=== PATIENT | male | born 1970 | race Two or more races ===

== ENCOUNTER 2025-05-03 19:06 | Inpatient (IN) | payer MEDICARE, OTHER ==
[~2025-05-03] VITALS: Ht 165.1 cm; Wt 106.1 kg
[2025-05-03 19:50] LABS: PLATELET COUNT (AUTO) 379 K/uL (152-348); RED BLOOD CELL COUNT(AUTO) 4.00 MIL/uL (4.06-5.63); RED CELL DISTRIBUTION WIDTH 14.2 % (12.1-16.2); WHITE BLOOD COUNT (AUTO) 9.5 K/uL (3.6-10.2)
[2025-05-03 19:57] LABS: CREATININE 1.0 mg/dL (0.6-1.3); SODIUM SERUM 134.0 mmol/L (136-145); UREA NITROGEN, BLOOD 14.0 mg/dL (7-18)
[2025-05-03 20:03] LABS: ASPARTATE AMINOTRANSFERASE 63.0 U/L (15-37); TOTAL PROTEIN, SERUM 8.3 g/dL (6.4-8.2)
[2025-05-03] MEDS ORDERED: LORAZEPAM 1 MG TABLET ONE (22:55)
[2025-05-03] MEDS: LORAZEPAM 0.5 MG TABLET PO ONE (22:57)
[2025-05-04 01:00] VITALS: BP 146/89; TEMP 97.7; O2SAT 98
[2025-05-04] MEDS ORDERED: MAGNESIUM HYDROXIDE 30 ML LIQUID UDC PO PRN (01:00)
[2025-05-04] MEDS ORDERED: MAG HYDROX/AL HYDROX/SIMETH 30 ML LIQUID UDC PO PRN (01:00)
[2025-05-04] MEDS ORDERED: LORAZEPAM 1 MG TABLET PO PRN (01:00)
[2025-05-04] MEDS ORDERED: LEVO75TA PO (01:57)
[2025-05-04] MEDS ORDERED: METO-358 PO (01:57)
[2025-05-04] MEDS ORDERED: DIVA500T2 PO (01:57)
[2025-05-04] MEDS ORDERED: RISP3TAB5 PO (01:57)
[2025-05-04] MEDS: TEMAZEPAM 7.5 MG CAPSULE PO PRN (02:09)
[2025-05-04 08:16] VITALS: BP 101/57; TEMP 97.7; O2SAT 98
[2025-05-04] MEDS: NICOTINE 21 MG/24HR PATCH TD SCH (08:38)
[2025-05-04] MEDS: REMEDY ESSENTIAL ZINC PASTE 113 GM TOP SCH (08:39)
[2025-05-04] MEDS ORDERED: risperiDONE 1 MG/ML UDC PO SCH (13:45)
[2025-05-04] MEDS: DIVALPROEX 500 MG TABLET.DR PO SCH (14:27)
[2025-05-04] MEDS: METOPROLOL SUCCINATE XL 50 MG TAB.SR.24H PO SCH (15:46)
[2025-05-04] MEDS ORDERED: DIVA500T4 PO (15:59)
[2025-05-04] MEDS ORDERED: TRIA60LO16 TP (16:01)
[2025-05-04] MEDS ORDERED: ACET325T53 PO (16:02)
[2025-05-04] MEDS ORDERED: NICO2GUM38 BC (16:03)
[2025-05-04 16:55] VITALS: BP 107/59; TEMP 97.7; O2SAT 98
[2025-05-04 20:02] VITALS: BP 104/62; TEMP 98.1; O2SAT 96
[2025-05-04] MEDS: LORAZEPAM 1 MG TABLET PO PRN (20:11)
[2025-05-05] MEDS: LEVOTHYROXINE SODIUM 75 MCG TABLET PO SCH (06:26)
[2025-05-05 07:48] LABS: ASPARTATE AMINOTRANSFERASE 48.0 U/L (15-37); CREATININE 1.0 mg/dL (0.6-1.3); SODIUM SERUM 135.0 mmol/L (136-145); TOTAL PROTEIN, SERUM 7.6 g/dL (6.4-8.2); UREA NITROGEN, BLOOD 13.0 mg/dL (7-18)
[2025-05-05 08:14] VITALS: BP 112/68; TEMP 98.1; O2SAT 96
[2025-05-05 16:11] VITALS: BP 101/61; TEMP 98.1; O2SAT 96
[2025-05-05 20:00] VITALS: BP 132/82; TEMP 97.9; O2SAT 100
[2025-05-05] MEDS: ACETAMINOPHEN 325 MG TABLET PO PRN (20:51)
[2025-05-06 08:39] VITALS: BP 122/71; TEMP 98.7; O2SAT 100
[2025-05-06 15:50] VITALS: BP 116/68; TEMP 97.5; O2SAT 100
[2025-05-06 19:57] VITALS: BP 118/79; TEMP 97.8; O2SAT 99
[2025-05-07] MEDS: TEMAZEPAM 7.5 MG CAPSULE PO PRN (01:29)
[2025-05-07 08:10] VITALS: BP 138/94; TEMP 98; O2SAT 98
[2025-05-07 15:23] VITALS: BP 127/83; TEMP 98; O2SAT 99
[2025-05-07] MEDS: HYDROCODONE/APAP 5-325MG TABLET PO PRN (17:20)
[2025-05-07 19:50] VITALS: BP 115/81; TEMP 97.8; O2SAT 97
[2025-05-07 20:00] VITALS: BP 115/81; TEMP 97.8; O2SAT 97
[2025-05-08 07:54] VITALS: BP 131/83; TEMP 98; O2SAT 98
[2025-05-08 15:30] VITALS: BP 129/81; TEMP 98; O2SAT 98
[2025-05-08 20:01] VITALS: BP 130/78; TEMP 98.1; O2SAT 98
[2025-05-09] MEDS: OLANZAPINE 5 MG TABLET PO SCH (00:26)
[2025-05-09 08:06] VITALS: BP 118/87; TEMP 98; O2SAT 100
[2025-05-09 15:34] VITALS: BP 126/66; TEMP 98; O2SAT 98
[2025-05-09 20:18] VITALS: BP 125/69; TEMP 98.1; O2SAT 99
[2025-05-10 08:10] VITALS: BP 127/77; TEMP 98.5; O2SAT 100
[2025-05-10 16:30] VITALS: BP 130/69; TEMP 98.5; O2SAT 100
[2025-05-10 19:55] VITALS: BP 127/80; TEMP 97.7; O2SAT 98
[2025-05-11 16:22] VITALS: BP 118/68; TEMP 97.9; O2SAT 98
[2025-05-11 19:56] VITALS: BP 127/76; TEMP 97.3; O2SAT 98
[2025-05-12 08:14] VITALS: BP 90/60; TEMP 97.3; O2SAT 98
[2025-05-12 16:33] VITALS: BP 127/76; TEMP 97.3; O2SAT 98
[2025-05-12 19:42] VITALS: BP 118/62; TEMP 98.1; O2SAT 98
[2025-05-13 07:54] LABS: PLATELET COUNT (AUTO) 308 K/uL (152-348); RED BLOOD CELL COUNT(AUTO) 4.29 MIL/uL (4.06-5.63); RED CELL DISTRIBUTION WIDTH 14.1 % (12.1-16.2); WHITE BLOOD COUNT (AUTO) 7.3 K/uL (3.6-10.2)
[2025-05-13 08:16] LABS: CREATININE 1.3 mg/dL (0.6-1.3); SODIUM SERUM 141.0 mmol/L (136-145); UREA NITROGEN, BLOOD 19.0 mg/dL (7-18); VALPROIC ACID 51.0 ug/mL (50-100)
[2025-05-13 08:18] VITALS: BP 131/92; TEMP 97.7; O2SAT 99
[2025-05-13 16:00] VITALS: BP 131/78; TEMP 98.5; O2SAT 100
[2025-05-13 19:59] VITALS: BP 138/85; TEMP 98.2; O2SAT 97
[2025-05-14 08:09] VITALS: BP 128/81; TEMP 98; O2SAT 100
[2025-05-14 16:21] VITALS: BP 123/75; TEMP 98; O2SAT 98
[2025-05-14 19:53] VITALS: BP 130/81; TEMP 98.1; O2SAT 99
[2025-05-14] MEDS: OLANZAPINE 5 MG TABLET PO SCH (20:31)
[2025-05-15 08:12] LABS: ASPARTATE AMINOTRANSFERASE 9.0 U/L (15-37); CREATININE 1.0 mg/dL (0.6-1.3); SODIUM SERUM 139.0 mmol/L (136-145); TOTAL PROTEIN, SERUM 7.1 g/dL (6.4-8.2); UREA NITROGEN, BLOOD 20.0 mg/dL (7-18)
[2025-05-15 08:51] VITALS: BP 111/77; TEMP 98.2; O2SAT 100
[2025-05-15 15:28] VITALS: BP 131/51; TEMP 98.2; O2SAT 100
== END 2025-05-15 16:45 | DRG 885 ==
LOC: ER 19:06 → GPS 20:55
PROVIDERS: ADMIT Psychiatry & Neurology Psychosomatic Medicine; ATTEND Student in an Organized Health Care Education/Training Program
DX: F29 Unspecified psychosis not due to a substance or known physiological condition (principal); I11.0 Hypertensive heart disease with heart failure; E87.1 Hypo-osmolality and hyponatremia; Z68.41 Body mass index [BMI] 40.0-44.9, adult; F41.9 Anxiety disorder, unspecified; F17.210 Nicotine dependence, cigarettes, uncomplicated; E03.9 Hypothyroidism, unspecified; Z79.890 Hormone replacement therapy; D75.839 Thrombocytosis, unspecified; E66.01 Morbid (severe) obesity due to excess calories; J44.9 Chronic obstructive pulmonary disease, unspecified; I50.9 Heart failure, unspecified; M54.10 Radiculopathy, site unspecified; H91.93 Unspecified hearing loss, bilateral; Z79.899 Other long term (current) drug therapy; L40.9 Psoriasis, unspecified; Z91.199 Patient's noncompliance with other medical treatment and regimen due to unspecified reason; F31.9 Bipolar disorder, unspecified; D64.9 Anemia, unspecified; F20.9 Schizophrenia, unspecified; R41.9 Unspecified symptoms and signs involving cognitive functions and awareness; R74.01 Elevation of levels of liver transaminase levels
CPT/HCPCS: 36415; 80164; 84443; 85025; A4606; A4663